=== PATIENT | female | born 1995 | race Caucasian/White ===

== ENCOUNTER 2017-10-11 17:32 | Emergency (ER) | payer OTHER ==
[2017-10-11] MEDS: LIDOCAINE 1% (MDV) 20 ML INJ SC (19:01)
[2017-10-11] MEDS: DIPHTH/TET/ACEL PERTUSS (ADULT) 0.5 ML VIAL IM* (19:01)
== END 2017-10-11 19:33 | disposition home or self-care (01) ==
LOC: FTE 17:32
DX: S61.412A Laceration without foreign body of left hand, initial encounter (principal); W26.0XXA Contact with knife, initial encounter; Y92.9 Unspecified place or not applicable; Z23 Encounter for immunization
CPT/HCPCS: 12001; 90715; 96372; 99283-25

== ENCOUNTER 2017-10-26 11:22 | Emergency (ER) | payer OTHER | END 2017-10-26 11:46 | disposition home or self-care (01) | LOC: E/R 11:22 | DX: Z48.02 Encounter for removal of sutures (principal); J45.909 Unspecified asthma, uncomplicated | CPT/HCPCS: 99281; Z7502 ==